=== PATIENT | female | born 1945 | race Caucasian/White ===

== ENCOUNTER → 2023-08-19 | Outpatient (CLI) | payer MEDICARE, BC ==
--- NOTE | 2023-08-19 16:04 | US ---
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 VESSELS IMAGED: Common Femoral Vein Deep Femoral Vein Greater Saphenous Vein * Femoral Vein Popliteal Vein Small Saphenous Vein * Proximal Calf Veins (* superficial vessels) Right Leg: Negative for DVT Exam limited by edema and body habitus IMPRESSION: Limited study shows no evidence of DVT in the right lower extremity.
== END | disposition home or self-care (01) ==
LOC: RADUSWWP 14:08
PROVIDERS: ATTEND Orthopaedic Surgery
DX: I80.291 Phlebitis and thrombophlebitis of other deep vessels of right lower extremity (principal); Z96.651 Presence of right artificial knee joint